=== PATIENT | female | born 1995 | race Two or more races ===

== ENCOUNTER 2024-11-13 16:37 | Emergency (ER) | payer MEDICAID, OTHER ==
[~2024-11-13] VITALS: Ht 170.2 cm; Wt 65.0 kg
--- NOTE | 2024-11-13 16:56 | ECG ---
[facility] Test Date: 2024-11-13 Test Time: 16:41:19 Pat Name: GANESH MELO Department: Room: Gender: F [employer]: VERN : 1995 Requested By: LEXIS LEMA Order Number: [id number] Reading MD: Measurements Intervals Rule Rate: 92 P: 0 VA: 0 QRS: 93 QRSD: 111 T: 49 QT: 384 QTc: 476 Interpretive Statements Atrial flutter Consider right ventricular hypertrophy Please click the below link to view image of tracing.
[2024-11-13 16:58] VITALS: PULSE 92; RESP 20; O2SAT 100
[2024-11-13] MEDS: SODIUM CHLORIDE 0.9% 1,000 ML IV ONE (17:47)
[2024-11-13 17:54] LABS: Hematocrit 43.2 % (36.0-46.0); Hemoglobin 15.1 g/dL (12.2-16.2); Mean Corpuscular Hemoglobin 28.7 pg (28.0-32.0); Mean Corpuscular Volume 82.3 fL (80.0-100.0); Nucleated Red Blood Cells % 0.1 %
[2024-11-13 18:02] LABS: Chloride 106 mmol/L (98-107); Sodium 141 mmol/L (136-145)
[2024-11-13 18:03] LABS: Anion Gap 16 (5-15)
[2024-11-13 18:04] LABS: Calcium 9.6 mg/dL (8.7-10.4); Carbon Dioxide 19 mmol/L (20-31); Potassium 3.4 mmol/L (3.5-5.1)
[2024-11-13 18:08] LABS: BUN/Creatinine Ratio 12.4 (10.0-20.0); Blood Urea Nitrogen 11 mg/dL (9-23); Glucose 92 mg/dL (74-106)
[2024-11-13 18:09] LABS: Magnesium 1.7 mg/dL (1.6-2.6)
[2024-11-13 19:30] LABS: Urine Protein, UAD Negative (Negative)
[2024-11-13] MEDS: KETOROLAC TROMETH 30 MG/ML 1ML VIAL IV ONE (19:34)
--- NOTE | 2024-11-13 19:34 | ED.PDOC ---
HPI Comments This patient is a pleasant 29-year-old female who presents to the ED with c/c of chest pain. Patient states she has been having chest pain since earlier today while patient was driving [place] from [employer]. Patient states the pain is substernal constant nonradiating rating the pain 6/10 tightness in nature with no associated exacerbating or relieving factors. Patient arrives with signs of essential tremor, mild arm flailing and hand contractions. Patient states she has a history of neurologic or rheumatology concerns and sees a specialists for both, but states no diagnosis has been made. Vital signs were stable on arrival. Chief Complaint: Chest Pain Time Seen by MD: 19:36 Reviewed Notes: Nurses Notes, Medications, Allergies Allergies: Coded Allergies: NO KNOWN ALLERGIES (Unverified , 11/13/24) Information Source: Patient Mode of Arrival: Ambulatory Severity: Moderate Timing: Hours Duration: Since onset Prehospital treatment: None Location: Substernal Quality: Pressure, Tightness Onset: At Rest Cardiac Risk Factors: Other (History of possible rheumatologic concerns.) PE Risk Factors: None History of: Similar pain in past Past Medical History PAST MEDICAL HISTORY: Denies Past Medical History (Other): Patient has a intermittent tremor events. Surgical History: Denies all surgeries [employer] History: Denies all [employer] Hx Family History Family History: Reviewed,noncontributory to illness Social History Smoker: Non-Smoker Alcohol: Denies ETOH Use Drugs: Denies Drug Use Lives In: Home Constitutional: denies: chills, diaphoresis, fatigue, fever, malaise, sweats, weakness, others EENTM: denies: blurred vision, double vision, ear bleeding, ear discharge, ear drainage, ear pain, ear ringing, eye pain, eye redness, hearing loss, mouth pain, mouth swelling, nasal discharge, nose bleeding, nose congestion, nose pain, photophobia, tearing, throat pain, throat swelling, voice changes, others Respiratory: denies: cough, hemoptysis, orthopnea, SOB at rest, shortness of breath, SOB with excertion, stridor, wheezing, others Cardiovascular: reports: chest pain; denies: dizzy spells, diaphoresis, Dyspnea on exertion, edema, irregular heart beat, left arm pain, lightheadedness, palpitations, PND, syncope, others Gastrointestinal: denies: abdomen distended, abdominal pain, blood streaked bowels, constipated, diarrhea, dysphagia, difficulty swallowing, hematemesis, melena, nausea, poor appetite, poor fluid intake, rectal bleeding, rectal pain, vomiting, others Genitourinary: denies: abnormal vagina bleeding, burning, dyspareunia, dysuria, flank pain, frequency, hematuria, incontinence, pain, , vagina discharge, urgency, others Neurological: denies: dizziness, fainting, headache, left sided numbness, left sided weakness, numbness, paresthesia, pre-existing deficit, right sided numbness, right sided weakness, seizure, speech problems, tingling, tremors, weakness, others Musculoskeletal: reports: others (Global tremor events); denies: back pain, gout, joint pain, joint swelling, muscle pain, muscle stiffness, neck pain Integumetry: denies: bruises, change in color, change in hair/nails, dryness, laceration, lesions, lumps, rash, wounds, others Allergic/Immunocompromised: denies: Difficulty Healing, Frequent Infections, Hives, Itching, others Hematologic/Lymphatic: denies: anemia, blood clots, easy bleeding, easy bruising, swollen glands, others Endocrine: denies: excessive hunger, excessive sweating, excessive thirst, excessive urination, flushing, intolerance to cold, intolerance to heat, unexplained weight gain, unexplained weight loss, others Psychiatric: denies: anxiety, bipolar disorder, depression, hopeless, panic disorder, schizophrenia, sleepless, suicidal, others All Other Systems: Reviewed and Negative Physical Exam General Appearance: Moderate Distress (Moderate distress due to chest pain and generalized tremor concerns.), Normal HEENT: Normal ENT Inspection, Pharynx Normal, TMs Normal Neck: Full Range of Motion, Non-Tender, Normal, Normal Inspection Respiratory: Chest Non-Tender, Lungs Clear, No Accessory Muscle Use, No Respiratory Distress, Normal Breath Sounds Cardiovascular: No Edema, No JVD, No Murmur, No Gallop, Normal Peripheral Pulses, Regular Rate/Rhythm Breast Exam: Deferred Gastrointestinal: No Organomegaly, Non Tender, No Pulsatile Mass, Normal Bowel Sounds, Soft Genitalia: Deferred Pelvic: Deferred Rectal: Deferred Extremities: Other (Patient has global tremor signs during evaluation. Some finger and hand contracture noted.) Neurologic: Alert Cerebellar Function: NOT DONE Reflexes: NOT DONE Skin: Dry, Normal Color, Warm Lymphatic: No Adenopathy Was a procedure done? Was a procedure done?: No CP Differential Dx Differential Diagnosis: Angina, Anxiety / Panic Attack, Other (Chest pain, sepsis, electrolyte abnormality) Differential Diagnosis: Chest Wall Pain, Esophageal reflux/spasm, Pericarditis X-Ray, Labs, Meds, VS Vital Signs Date Time Temp Pulse Resp B/P (MAP) Pulse Ox O2 Delivery O2 Flow Rate FiO2 11/13/24 19:30 Room Air* 0 21 11/13/24 19:09 98.0 65 13 101/71 (81) 100 98.0 11/13/24 17:42 80 11/13/24 16:58 98.1 92 19 128/81 (97) 100 98.1 11/13/24 16:58 92 20 100 Room Air* 0 21 11/13/24 16:41 92 11/13/24 16:39 98.0 95 22 123/77 97 98.0 Lab Test 11/13/24 18:58 11/13/24 18:16 11/13/24 17:21 Range/Units Urine Color Light-yellow Yellow Urine Clarity Clear Clear Urine pH 7.5 5.0-9.0 Urine Specific [place] 1.010 1.001-1.035 Urine Protein Negative Negative Urine Ketones 2+ H Negative Urine Blood Negative Negative /uL Urine Nitrite Negative Negative Urine Bilirubin Negative Negative Urine Urobilinogen Normal Negative mg/dL Urine Leukocyte Esterase Trace Negative /uL Urine RBC <1 0 - 4 /hpf Urine Microscopic WBC 2 0-5 /HPF Urine Squamous Epithelial Cells Few <5 /hpf Urine Bacteria None seen None Seen /hpf Urine Glucose Normal Normal mg/dL Troponin I High Sensitivity < 3 L < 3 L </=34 ng/L White Blood Count 6.0 4.4-10.8 10^3/uL Red Blood Count 5.25 H 4.0-5.20 10^6/uL Hemoglobin 15.1 12.2-16.2 g/dL Hematocrit 43.2 36.0-46.0 % Mean Corpuscular Volume 82.3 80.0-100.0 fL Mean Corpuscular Hemoglobin 28.7 28.0-32.0 pg Mean Corpuscular Hemoglobin Concent 34.8 32.0-36.0 g/dL Red Cell Distribution Width 13.2 11.8-14.3 % Platelet Count 252 140-450 10^3/uL Mean Platelet Volume 8.7 6.9-10.8 fL Neutrophils (%) (Auto) 52.4 37.0-80.0 % Lymphocytes (%) (Auto) 34.7 10.0-50.0 % Monocytes (%) (Auto) 10.0 0.0-12.0 % Eosinophils (%) (Auto) 1.9 0.0-7.0 % Basophils (%) (Auto) 1.0 0.0-2.0 % Neutrophils # (Auto) 3.1 1.6-8.6 10 ^3/uL Lymphocytes # (Auto) 2.1 0.4-5.4 10 ^3/uL Monocytes # (Auto) 0.6 0-1.3 10 ^3/uL Eosinophils # (Auto) 0.1 0-0.8 10 ^3/uL Basophils # (Auto) 0.1 0-0.2 10 ^3/uL Nucleated Red Blood Cells 0.1 % D-Dimer, Quantitative 0.27 0.0-0.49 mg/L FEU Sodium Level 141 136-145 mmol/L Potassium Level 3.4 L 3.5-5.1 mmol/L Chloride Level 106 98-107 mmol/L Carbon Dioxide Level 19 L 20-31 mmol/L Anion Gap 16 H 5-15 Blood Urea Nitrogen 11 9-23 mg/dL Creatinine 0.89 0.550-1.02 mg/dL Glomerular Filtration Rate Calc 89 >90 mL/min BUN/Creatinine Ratio 12.4 10.0-20.0 Serum Glucose 92 74-106 mg/dL Calcium Level 9.6 8.7-10.4 mg/dL Magnesium Level 1.7 1.6-2.6 mg/dL Thyroid Stimulating Hormone (TSH) 2.37 0.55-4.78 uIU/mL Current Medications Medications (Trade) Dose Ordered Sig/Zulma Route Start Time Stop Time Status Last Admin Sodium Chloride 1,000 ml @ 1,000 mls/hr Q1H ONCE IV 11/13/24 17:45 11/13/24 18:44 DC 11/13/24 17:47 Ketorolac Tromethamine (Toradol Injection) 15 mg ONCE ONCE IV 11/13/24 19:30 11/13/24 19:31 DC 11/13/24 19:34 X-Ray, Labs, Meds, VS Comment All studies performed the ED were evaluated by me personally. Serum and urinalysis were unremarkable for any systemic concerns. EKG revealed a sinus rhythm with a rate of 80. Left atrial enlargement was noted with RSR in V1 or V2 as well as right VC ED or RVH. Borderline prolonged QT interval noted. IN interval of 129 and QT interval of 421. Unknown as far as with the patient's chest pain in tremor concerns. Patient was stable and without pain at time of discharge. Advised patient continue follow up with specialist for longer-term management. Time of 1ST Reevaluation: 20:19 Reevaluation 1ST: Improved Consultation: PCP, Cardiology Patient Education/Counseling: Diagnosis, Treatment Family Education/Counseling: Diagnosis, Treatment, No Family Present SEPSIS Sepsis Screen Date sepsis recognized/suspect: Nov 13, 2024 Time Sepsis recognized/suspect: 1657 Recent Procedure: No On Antibiotic Therapy: No Respiratory Rate >20: No Heart Rate >90: Yes Temp<36 C (96.8 F) or >38.3 C: No SBP <90 or MAP <65 mmHG: No New Acute Mental Status Change: No Is the patient on CPAP, BIPAP,: No Physician Orders Heplock Iv (11/13/24 16:53) Continuous Ekg Monitoring 08,12,16,20,00,04 (11/13/24 16:53) Vital Signs Date Time Temp Pulse Resp B/P (MAP) Pulse Ox O2 Delivery O2 Flow Rate FiO2 11/13/24 19:30 Room Air* 0 21 11/13/24 19:09 98.0 65 13 101/71 (81) 100 98.0 11/13/24 17:42 80 11/13/24 16:58 98.1 92 19 128/81 (97) 100 98.1 11/13/24 16:58 92 20 100 Room Air* 0 21 11/13/24 16:41 92 11/13/24 16:39 98.0 95 22 123/77 97 98.0 Laboratory Tests Test 11/13/24 17:21 White Blood Count 6.0 10^3/uL (4.4-10.8) Medications Medications Dose Ordered Sig/Zulma Route Start Time Stop Time Status Last Admin Dose Admin Ketorolac Tromethamine 15 mg ONCE ONCE IV 11/13/24 19:30 11/13/24 19:31 DC 11/13/24 19:34 Sodium Chloride 1,000 ml @ 1,000 mls/hr Q1H ONCE IV 11/13/24 17:45 11/13/24 18:44 DC 11/13/24 17:47 Departure 1 Departure Time of Disposition: 20:19 Impression: Primary Impression: Chest pain Additional Impression: Movement disorder Disposition: HOME / SELF CARE / HOMELESS Condition: Stable Additional Instructions: Advised patient continue follow up with the primary care provider for discussions related to today's visit and long-term management of multiple comorbidities. e-Prescriptions Ibuprofen (Ibuprofen) 600 Mg Tab 1 TAB PO Q6HP PRN, #20 TAB Prov: LEXIS LEMA PAC 11/13/24 Discharged With: Self, Friend Critical Care Note Critical Care Time?: No Stability Stability form required: No Heart Score Heart Score: Heart Score Response (Comments) Value History Slightly Suspicious 0 EKG Repolarization Disturb 1 Age <45 0 Risk Factors No known risk factors 0 Troponin Normal limit 0 Total 1 I personally scribed for LEXIS LEMA PAC ([email or web address]) on 11/13/24 at 19:34. Electronically submitted by Thelma Ash ([email or web address]). I personally scribed for LEXIS LEMA PAC ([email or web address]) on 11/13/24 at 19:39. Electronically submitted by Thelma Ash ([email or web address]). LEXIS LEMA PAC Nov 13, 2024 19:34
[2024-11-13 20:00] VITALS: TEMP 98.8
[2024-11-13] MEDS ORDERED: IBUP-1454 PO (20:20)
[2024-11-13 20:24] VITALS: BP 103/62; PULSE 59; RESP 13; O2SAT 98
== END 2024-11-13 20:21 | disposition home or self-care (01) ==
LOC: ER 16:41
DX: G25.9 Extrapyramidal and movement disorder, unspecified (principal); R07.89 Other chest pain; Z79.899 Other long term (current) drug therapy
CPT/HCPCS: 36415; 80048; 81001; 83735; 84443; 84484; 85025; 85379; 93005; 96361; 96374; 99285; J1885; J7030